=== PATIENT | male | born 1950 | race Caucasian/White ===

== ENCOUNTER 2016-08-02 15:36 | Outpatient (RCR) | payer OTHER | END 2016-08-23 | disposition home or self-care (01) | LOC: PTY 15:36 | DX: K43.9 Ventral hernia without obstruction or gangrene (principal); M47.817 Spondylosis without myelopathy or radiculopathy, lumbosacral region ==

== ENCOUNTER 2016-08-25 14:00 | Outpatient (RCR) | payer OTHER | END 2016-09-23 | disposition home or self-care (01) | LOC: PTY 14:00 | DX: M47.817 Spondylosis without myelopathy or radiculopathy, lumbosacral region (principal); K43.9 Ventral hernia without obstruction or gangrene ==

== ENCOUNTER 2017-04-19 13:00 | Outpatient (RCR) | payer OTHER | END 2017-04-25 | disposition home or self-care (01) | LOC: PTY 13:00 | DX: M51.36 Other intervertebral disc degeneration, lumbar region (principal) ==